=== PATIENT | female | born 2000 | race Hispanic/Latino ===

== ENCOUNTER 2022-03-19 18:41 | Emergency (ER) | payer SELFPAY ==
--- NOTE | ~2022-03-19 | XR_ITS ---
EXAMINATION: XR chest 2V DATE: 03/19/2022 19:09 INDICATION: Right-sided chest pain TECHNIQUE: PA and lateral views of the chest are obtained. COMPARISON: None available FINDINGS: The lungs are free of acute opacities. There is no pleural effusion or pneumothorax. The ca rdiomediastinal silhouette is normal. The visualized bones and soft tissues are unremarkable. IMPRESSION: 1. No acute cardiopulmonary abnormality. Reviewed, dictated and finalized at location F.
[2022-03-19 18:47] VITALS: BP 124/83; PULSE 92; RESP 14; TEMP 36.8; O2SAT 100
--- NOTE | 2022-03-19 19:02 | ED.GENADULT ---
HPI - General Adult General Chief complaint: Upper Respiratory Infection Stated complaint: ST Time Seen by Provider: 03/19/22 18:53 History of Present Illness HPI narrative: Patient is a 21-year-old female here for evaluation of pain in her upper abdomen and sternum area for the past 3 days. Patient states the pain is intermittent in nature, worse with swallowing, and occasionally moves over to her right shoulder. Denies relief after Tylenol. Denies dysphagia, globus sensation, sore throat, nausea, vomiting, fevers, chills, cough, chest pain, diarrhea, constipation. No sick contacts. Related Data Allergies Allergy/AdvReac Type Severity Reaction Status Date / Time shrimp Allergy Swelling Verified 03/19/22 19:13 of Lip/Tongue/Throat Review of Systems Review of Systems: Gen: Denies fevers or chills Eyes: Denies eye pain or visual change ENT: Denies congestion Respiratory: Denies shortness of breath or cough CV: Denies chest pain or palpitations GI: Reports upper abdominal pain. Denies nausea, emesis or diarrhea denies burning, urgency, frequency or hematuria Musculoskeletal: Denies back pain or muscle pain Neuro: Denies numbness, tingling, weakness or focal weakness Skin: Denies rash Except as documented, all other systems reviewed and negative Exam Narrative: APPEARANCE: No acute distress, nontoxic, resting in bed EYES: EOMI HEENT: Posterior oropharynx is mildly erythematous. No exudates, no tonsillar swelling, no COMPUTATIONAL PHYSICIST or RTA visualzed. Neck: No lymphadenopathy. RESPIRATORY: No respiratory distress Clear to auscultation bilaterally with no rhonchi wheezing or rales. CARDIOVASCULAR: Regular rate and rhythm without murmurs rubs or gallops. ABDOMINAL: Soft, nontender, nondistended, no rebound or guarding MUSCULOSKELETAL: No tenderness to palpation of chest wall. Moves all extremities. No clubbing, cyanosis or edema. NEURO: Awake and alert. Following commands, speech normal, no focal deficits SKIN: Warm, dry. No rashes lesions or abrasions PSYCHIATRIC: Normal affect/mood Course Vital Signs Vital signs: Vital Signs Temperature 98.2 F 03/19/22 18:47 Pulse Rate 92 03/19/22 18:47 Respiratory Rate 14 03/19/22 18:47 Blood Pressure 124/83 03/19/22 18:47 Pulse Oximetry 100 03/19/22 18:47 Oxygen Delivery Room Air 03/19/22 18:47 Temperature 99.2 F 03/19/22 20:48 Pulse Rate 79 03/19/22 20:48 Respiratory Rate 18 03/19/22 20:48 Blood Pressure 119/75 03/19/22 20:48 Pulse Oximetry 100 03/19/22 20:48 Oxygen Delivery Room Air 03/19/22 19:14 Medical Decision Making MDM Narrative Medical decision making narrative: 21-year-old female here for evaluation of odynophagia for the past 3 days. Vital signs are normal, heart lungs are clear to auscultation, posterior oropharynx is mildly erythematous but otherwise clear to inspection with no signs of airway compromise. Suspected strep throat, foreign body, or esophagitis. Will follow strep culture. Very low suspicion for esophageal rupture given lack of vomiting or risk factors and clear chest x ray. Low suspicion for cardiac etiology of pain given location and exacerbation with swallowing. She is PERC negative and wells low risk. Patient's pain not improved much after GI cocktail, but patient is stable for discharge. Will have patient follow up with GI specialist for evaluation of her symptoms; she will likely need upper endoscopy if her symptoms continue. Vital Signs Vital Signs: Vital Signs Temperature 98.2 F 03/19/22 18:47 Pulse Rate 92 03/19/22 18:47 Respiratory Rate 14 03/19/22 18:47 Blood Pressure 124/83 03/19/22 18:47 Pulse Oximetry 100 03/19/22 18:47 Oxygen Delivery Room Air 03/19/22 18:47 Temperature 99.2 F 03/19/22 20:48 Pulse Rate 79 03/19/22 20:48 Respiratory Rate 18 03/19/22 20:48 Blood Pressure 119/75 03/19/22 20:48 Pulse Oximetry 100 03/19/22 20:48 Oxygen Delivery Room
[2022-03-19] MEDS: BELLADONNA ALK/PHENOB ELIX 10 ML, MAG HYDROX/ALUMINUM HYD/SIMETH 30 ML, LIDOCAINE HCL 2... PO (19:25)
--- NOTE | 2022-03-19 19:57 | PC.NURSE ---
Called lab, sending down rapid STREP
[2022-03-19] MEDS: IBUPROFEN 600 MG TABLET PO (20:12)
[2022-03-19 20:48] VITALS: BP 119/75; PULSE 79; RESP 18; TEMP 37.3; O2SAT 100
== END 2022-03-19 20:48 | disposition home or self-care (01) ==
PROVIDERS: Emergency Provider Emergency Medicine
DX: R13.10 Dysphagia, unspecified (principal)
CPT/HCPCS: 71046; 99283; A9270

== ENCOUNTER 2022-12-14 09:21 | Emergency (ER) | payer OTHER, MEDICAID, SELFPAY ==
--- NOTE | ~2022-12-14 | US_ITS ---
Pelvic ultrasound. Clinical History: First trimester , vaginal bleeding Technique: Realtime transabdominal and transvaginal scanning of the pelvis was performed. Color flow Doppler and Doppler spectral analysis were performed. Findings: The uterus is anteverted, and contains an intrauterine gestation. heart rate is 134 b pm. [place]-rump length of 7 mm corresponds to an estimated gestational age of 6 weeks 4 days. Small garcia bchorionic hemorrhage probably present. Posterior fibroid measures 2.9 cm in diameter. The right ovary measures 2.2 x 2.5 x 1.0 cm. No significant right ovarian or adnexal mass is seen. The left ovary measures 3.1 x 3.7 x 1.8 cm. No significant left ovarian or adnexal mass is seen. There is no evidence of free fluid in the cul de sac. Impression: Live intrauterine gestation with estimated gestational age of 6 weeks 4 days. heart rate is 134 bpm. Probable small subchorionic hemorrhage. Reviewed, dictated and finalized at location . Impression: Live intrauterine gestation with estimated gestational age of 6 weeks 4 days. F etal heart rate is 134 bpm. Probable small subchorionic hemorrhage.
[2022-12-14 09:33] VITALS: BP 134/80; PULSE 85; RESP 15; TEMP 36.7; O2SAT 100
[2022-12-14 10:19] LABS: Basophils Absolute Auto 0.1 K/mm3 (0.0-0.1); Basophils Percent Auto 0.7 % (0.2-1.2); Eosinophils Absolute Auto 0.1 K/mm3 (0-0.3); Eosinophils Percent Auto 0.6 % (0-4.4); Hemoglobin 15.3 g/dL (12.0-15.0); Immature Granulocyte Absolute 0.04 K/mm3 (0.00-0.031); Immature Granulocyte Percent A 0.3 % (0-0.5); Lymphocytes Percent Auto 18.8 % (18.3-44.2); Mean Corpuscular Hemoglobin 29.4 pg (26-34); Mean Corpuscular Volume 86.4 fl (80-100); Mean Platelet Volume 10.1 fl (7.4-10.4); Monocytes Absolute Auto 0.6 K/mm3 (0.1-0.6); Monocytes Percent Auto 4.8 % (2.6-8.5); Neutrophils Absolute Auto 9.1 K/mm3 (1.3-6.7); Neutrophils Percent Auto 74.8 % (45.5-73.1); Platelet Count Result 362 k/mm3 (150-375); Red Blood Count 5.21 M/mm3 (4.2-5.4); Red Cell Distribution Width 12.8 % (11.5-14.5); White Blood Count 12.2 K/mm3 (4.5-10.0)
--- NOTE | 2022-12-14 13:07 | ED.PREGNANCY ---
HPI - General Chief complaint: Vaginal Bleeding Stated complaint: pos preg test, bleeding and cramping Time Seen by Provider: 12/14/22 11:17 Source: patient Mode of arrival: ambulatory Limitations: no limitations History of Present Illness HPI Narrative: This is a 22-year-old , that presents to the emergency department for vaginal bleeding. Reports a recent positive test. Reports she believes her last menstrual period started on October 21 of this year. Reports this morning she was having some vaginal bleeding associated with cramping. It has slowed since onset. She has not seen her OB yet this . She does have an appointment scheduled for next week. Denies fever or dysuria. Related Data Allergies Allergy/AdvReac Type Severity Reaction Status Date / Time shrimp Allergy Swelling Verified 03/19/22 19:13 of Lip/Tongue/Throat Review of Systems Review of Systems: CONSTITUTIONAL: Denies fever GASTROINTESTINAL: Reports pelvic cramping. Denies vomiting GENITOURINARY: Denies dysuria All systems reviewed & are unremarkable except as noted in HPI and below PMFSH Past Medical History Medical History (Updated 12/14/22 @ 13:14 by Briana Vail PA-C) No active medical problems Social History Social History (Updated 12/14/22 @ 13:10 by Briana Vail PA-C) Smoking status: Never smoker Exam Narrative: GENERAL: Well-appearing, well-nourished, and in no acute distress. HEAD: Normocephalic, atraumatic. EYES: EOMI. CHEST: Clear to auscultation. No respiratory distress. No wheezes rales or rhonchi HEART: Regular rate and rhythm. No murmur heard. Normal peripheral pulses. ABDOMEN: Soft, nontender, nondistended, normal active bowel sounds. EXTREMITIES: Normal range of motion. No edema. SKIN: Warm, dry, no rash. NEURO: No focal deficits. Alert and oriented x3. PSYCH: Normal mood and affect PELVIC: Normal external genitalia. Small amount of pink blood in the vaginal vault, cervix closed Course Course Emergency Course: Patient was updated on work-up and agrees with plan of care Vital Signs Vital signs: Vital Signs Temperature 98.0 F 12/14/22 09:33 Pulse Rate 85 12/14/22 09:33 Respiratory Rate 15 12/14/22 09:33 Blood Pressure 134/80 12/14/22 09:33 Pulse Oximetry 100 12/14/22 09:33 Oxygen Delivery Room Air 12/14/22 09:33 Temperature 98.0 F 12/14/22 09:33 Pulse Rate 85 12/14/22 09:33 Respiratory Rate 15 12/14/22 09:33 Blood Pressure 134/80 12/14/22 09:33 Pulse Oximetry 100 12/14/22 09:33 Oxygen Delivery Room Air 12/14/22 09:33 MDM - OB/Uterine Contractions MDM Narrative Medical decision making narrative: Patient presents emergency department for vaginal bleeding after a recent positive test. Her vitals are stable. Hemoglobin is 15.3. Quantitative beta-hCG 93,276. A very small amount of bleeding was noted on exam. Patient is O+. Obstetrics ultrasound shows a live already uterine gestation with estimated age of 6 weeks and 4 days. heart rate is 134. Also a small subchorionic hemorrhage. Patient was updated on work-up. She does have follow-up next week with her OB. Patient is stable and felt appropriate for further outpatient evaluation. She was given warnings to return to the ER Differential Diagnosis Differential diagnosis: Likely other (Subchorionic hematoma, miscarriage, threatened miscarriage) Lab Data Attestation: I reviewed the patient's lab results. 12/14/22 10:11 Labs: Lab Results 12/14/22 12/14/22 12/14/22 Range/Units 10:11 10:11 10:11 WBC 12.2 H (4.5-10.0) K/mm3 RBC 5.21 (4.2-5.4) M/mm3 Hgb 15.3 H (12.0-15.0) g/dL Hct 45.0 (37.0-47.0) % MCV 86.4 (80-100) fl MCH 29.4 (26-34) pg MCHC 34.0 (32-36) g/dl RDW 12.8 (11.5-14.5) % Plt Count 362 (150-375) k/mm3 MPV 10.1 (7.4-10.4) fl Immature Gran % (Auto) 0.3 (0-0.5) % [place]
== END 2022-12-14 13:28 | disposition home or self-care (01) ==
PROVIDERS: Emergency Medicine; Emergency Provider Physician Assistant
DX: O46.8X1 Other antepartum hemorrhage, first trimester (principal); Z3A.01 Less than 8 weeks gestation of pregnancy
CPT/HCPCS: 36415; 76801; 76817; 81025; 84702; 85025; 85461; 86850; 86900; 86901; 99284

== ENCOUNTER → 2023-02-08 15:56 | Outpatient (CLI) | payer OTHER, MEDICAID, SELFPAY ==
--- NOTE | ~2023-02-08 | US_ITS ---
EXAMINATION: US OB <= 14 weeks fetus DATE: 02/08/2023 16:19 INDICATION: Establish dating of during first trimester TECHNIQUE: Real-time ultrasound of the pelvis was performed. The interpreting radiologist was not pre sent for the study. COMPARISON: 12/14/2022 FINDINGS: There is a single living fetus in breech presentation. The placenta is posterior and low-lying with caudal margin 1.7 cm from the internal cervical os. heart rate is 146 beats per minute (bpm). T he amniotic fluid volume is subjectively normal. The following biometric data were obtained: BPD: 2.9 cm -> 15 weeks 1 days Head circumference: 10.9 cm -> 15 weeks 2 days Abdominal circumference: 9.2 cm -> 15 weeks 2 days Femur length: 1.6 cm -> 14 weeks 5 days These measurements are concordant. Head circumference to abdominal circumference ratio: 1.19 (normal range 1.05-1.38). Estimated weight: 114 g (+/-) 17 g or 4 oz. (+/-) 1 oz. IMPRESSION: 1. Single living fetus in breech presentation with heart rate of 146 bpm. 2. Gestational age by ultrasound of 15 weeks 1 day(s) +/- 1 week(s) 0 day(s) with ultrasound estimate d date of delivery (BRANDON) of 08/01/2023 which is concordant with BRANDON based upon prior ultrasound perfor med on 12/14/2022. Estimated weight is 72nd percentile by Hadlock criteria when 08/15/2023 is us ed as the BRANDON. Please correlate with clinical information or earlier ultrasounds for most accurate ED D. 3. Estimated weight is th percentile by Hadlock criteria when is used as the estimated date of delivery (BRANDON). Please correlate with clinical information or earlier ultrasounds for most accurate E DD. 4. Low-lying posterior placenta with caudal margin 1.7 cm from the internal cervical os. Recommend re assessment with repeat ultrasound during early third trimester of . Reviewed, dictated and finalized at location A. IMPRESSION: 1. Single living fetus in breech presentation with heart rate of 146 bpm. 2. Gestational age by ultrasound of 15 weeks 1 day(s) +/- 1 week(s) 0 day(s) wi th ultrasound estimated date of delivery (BRANDON) of 08/01/2023 which is concordant with BRANDON based upon prior ultrasound performed on 12/14/2022. Estimated w eight is 72nd percentile by Hadlock criteria when 08/15/2023 is used as the BRANDON . Please correlate with clinical information or earlier ultrasounds for most ac curate BRANDON. 3. Estimated weight is th percentile by Hadlock criteria when is used as the estimated date of delivery (BRANDON). Please correlate with clinical informatio n or earlier ultrasounds for most accurate BRANDON. 4. Low-lying posterior placenta with caudal margin 1.7 cm from the internal cer vical os. Recommend reassessment with repeat ultrasound during early third trim peña of .
== END ==
PROVIDERS: PCP Obstetrics & Gynecology Gynecology; Visit Provider Advanced Practice Midwife
DX: Z36.87 Encounter for antenatal screening for uncertain dates (principal); Z3A.15 15 weeks gestation of pregnancy
CPT/HCPCS: 76801

== ENCOUNTER → 2023-03-13 10:29 | Outpatient (CLI) | payer OTHER, MEDICAID, SELFPAY ==
--- NOTE | ~2023-03-13 | US_ITS ---
US OB follow up 03/13/2023 11:13 Indication: Low lying placenta Procedure: High-resolution Limited obstetrical ultrasound Comparison: 02/08/2023 Findings: There is a single living intrauterine in vertex presentation. heart rate is 158 BPM. Placenta is posterior measuring 7 cm to the cervix. Amniotic fluid is subjectively normal. Cervical length is 2.6 cm. Impression: 1: Single living intrauterine in vertex presentation. 2: Posterior placenta without previa. Reviewed, dictated and finalized at location A. Impression: 1: Single living intrauterine in vertex presentation. 2: Posterior placenta without previa.
== END ==
PROVIDERS: PCP Obstetrics & Gynecology Gynecology; Visit Provider Obstetrics & Gynecology Gynecology
DX: O44.10 Complete placenta previa with hemorrhage, unspecified trimester (principal); Z3A.00 Weeks of gestation of pregnancy not specified
CPT/HCPCS: 76816

== ENCOUNTER 2023-03-24 14:33 | Emergency (ER) | payer OTHER, MEDICAID, SELFPAY ==
--- NOTE | ~2023-03-24 | XR_ITS ---
EXAMINATION: XR chest 1V portable INDICATION: Shortness of breath TECHNIQUE: Portable AP chest at 1528 hours COMPARISON: 03/19/2022 FINDINGS: The lungs are free of acute opacities. No pleural effusion or pneumothorax. The cardiomedia stinal silhouette is normal. IMPRESSION: 1. No acute cardiopulmonary abnormality. Reviewed, dictated and finalized at location []
--- NOTE | ~2023-03-24 | US_ITS ---
EXAMINATION: US venous doppler [facility] DATE: 03/24/2023 16:49 INDICATION: Bilateral lower limb swelling TECHNIQUE: Hodges scale images without and with compression and Doppler images of the bilateral lower e xtremity veins were obtained. COMPARISON: None FINDINGS: The right common femoral vein, profunda femoral vein, femoral vein, popliteal vein, peroneal trunk, p osterior tibial veins, and greater saphenous vein are patent. The left common femoral vein, profunda femoral vein, femoral vein, popliteal vein, peroneal trunk, po sterior tibial veins, and greater saphenous vein are patent. IMPRESSION: 1. Patent bilateral lower extremity veins. No evidence of deep venous thrombosis. Reviewed, dictated and finalized at location [] IMPRESSION: 1. Patent bilateral lower extremity veins. No evidence of deep venous thrombosi s.
--- NOTE | ~2023-03-24 | NM_ITS ---
EXAMINATION: NM pulmonary perfusion DATE: 03/24/2023 18:09 INDICATION: Shortness of breath. TECHNIQUE: 4.1 mCi Tc-99m MAA was administered intravenously for perfusion images. Scintigraphic imag es of the chest were obtained. COMPARISON: X-ray chest, same date. FINDINGS: Perfusion images show no defects. IMPRESSION: 1. Low probability for pulmonary embolism. Reviewed, dictated and finalized at location K.
[2023-03-24 14:45] VITALS: BP 124/66; PULSE 93; RESP 18; TEMP 36.7; O2SAT 100
--- NOTE | 2023-03-24 14:55 | ECG_ITS ---
Measurements Intervals [place] Rate: 82 P: 40 NV: 148 QRS: 45 QRSD: 82 T: 13 QT: 343 QTc: 403 Interpretive Statements SINUS RHYTHM NO PREVIOUS ECG AVAILABLE FOR COMPARISON Electronically Signed On 03-25-2023 11:40:12 CDT by Clive Winchester M.D.
[2023-03-24 15:07] VITALS: BP 109/74; PULSE 96; RESP 20; O2SAT 100
[2023-03-24 15:10] VITALS: PULSE 96
[2023-03-24 15:30] VITALS: BP 112/70; PULSE 95; RESP 18; O2SAT 99
[2023-03-24 15:40] LABS: Basophils Absolute Auto 0.1 K/mm3 (0.0-0.1); Basophils Percent Auto 0.4 % (0.2-1.2); Eosinophils Absolute Auto 0.1 K/mm3 (0-0.3); Eosinophils Percent Auto 1.1 % (0-4.4); Hematocrit 37.8 % (37.0-47.0); Hemoglobin 12.7 g/dL (12.0-15.0); Immature Granulocyte Absolute 0.13 K/mm3 (0.00-0.031); Immature Granulocyte Percent A 1.2 % (0-0.5); Lymphocytes Absolute Auto 1.91 K/mm3 (0.9-3.2); Lymphocytes Percent Auto 16.9 % (18.3-44.2); Mean Corpuscular HGB Conc 33.6 g/dl (32-36); Mean Corpuscular Hemoglobin 28.3 pg (26-34); Mean Corpuscular Volume 84.2 fl (80-100); Mean Platelet Volume 10.3 fl (7.4-10.4); Monocytes Absolute Auto 0.8 K/mm3 (0.1-0.6); Monocytes Percent Auto 7.2 % (2.6-8.5); Neutrophils Absolute Auto 8.3 K/mm3 (1.3-6.7); Neutrophils Percent Auto 73.2 % (45.5-73.1); Platelet Count Result 315 k/mm3 (150-375); Red Blood Count 4.49 M/mm3 (4.2-5.4); Red Cell Distribution Width 12.9 % (11.5-14.5); White Blood Count 11.3 K/mm3 (4.5-10.0)
[2023-03-24 15:50] LABS: Alanine Aminotransferase 33 U/L (6-35); Albumin Level 3.7 g/dL (3.5-5.1); Alkaline Phosphatase 78 U/L (38-126); Anion Gap 8 mmol/L (8-16); Aspartate Amino Transferase 23 U/L (14-36); Bilirubin,Total 0.3 mg/dL (0.2-1.3); Blood Urea Nitrogen 7 mg/dL (7-17); Calcium 8.8 mg/dL (8.4-10.2); Carbon Dioxide 23 mmol/L (22-30); Chloride 104 mmol/L (98-107); Estimated Glomerular Filt Rate > 60; Glucose 77 mg/dL (65-110); Potassium 3.4 mmol/L (3.4-5.0); Sodium 135 mmol/L (137-145)
[2023-03-24 15:51] LABS: Partial Thromboplastin Time 26.8 SECONDS (22.3-36.8)
[2023-03-24 15:52] LABS: INR 0.9; Prothrombin Time 12.9 Seconds (11.1-14.7)
[2023-03-24 15:53] LABS: D Dimer 0.89 ug/mL (<0.48)
[2023-03-24 16:02] LABS: NT Pro B Type Natriuretic Pept 54 pg/mL (19.9-100); Troponin I < 0.012 ng/mL (0.000-0.034)
[2023-03-24 16:12] VITALS: BP 107/68; PULSE 88; RESP 16; O2SAT 99
--- NOTE | 2023-03-24 16:33 | ED.GENADULT ---
HPI - General Adult General Chief complaint: Unspecified Stated complaint: I feel like I'm breathing abnormally Time Seen by Provider: 03/24/23 15:06 Source: patient and RN notes reviewed Mode of arrival: ambulatory Limitations: no limitations History of Present Illness HPI narrative: This is a 22 year old female GA 21 weeks who presents for evaluation of shortness of breath. Patient states she has had constant mid sternal chest pain for 2 weeks. She also reports palpitations and she describes her palpitations as episodes of heart racing. She reports shortness of breath that is worse with palpitations. She feels as though she is unable to breath right. Her OB is Dr. Pabon. Related Data Home Medications Medication Instructions Recorded Confirmed No Home Medications 03/24/23 03/24/23 Allergies Allergy/AdvReac Type Severity Reaction Status Date / Time shrimp Allergy Swelling Verified 03/24/23 15:15 of Lip/Tongue/Throat Review of Systems Constitutional: Constitutional: Denies weakness Cardiovascular: Cardiovascular: Denies syncope, Reports rapid heart rate, Denies irregular heart rhythm, Denies leg edema and Reports dyspnea Respiratory: Respiratory: Denies chest congestion, Denies hemoptysis, Denies excessive phlegm production and Denies dyspnea Gastrointestinal: Gastrointestinal: Denies abdominal pain, Denies hematochezia, Denies diarrhea and Denies vomiting Genitourinary: Genitourinary: Denies hematuria and Denies dysuria Musculoskeletal: Musculoskeletal: Denies joint swelling, Denies loss of height and Denies muscle weakness Neurologic: Denies syncope, Denies focal weakness and Denies weakness PMFSH Past Medical History Medical History No active medical problems Social History Social History Smoking status: Never smoker Exam Narrative: GENERAL: Well-appearing, well-nourished, and in no acute distress. HEAD: Normocephalic, atraumatic EYES: PERRLA and EOMI, conjunctiva clear without discharge THROAT:Mucous membranes moist, Oropharynx normal without erythema, exudate, peritonsillar swelling or fluctuance NECK: Supple, without lymphadenopathy or mass RESPIRATORY: No respiratory distress, Airway patent, Respirations non-labored, Clear to auscultation without rales, rhonchi or wheeze HEART: Regular rate and rhythm. No murmur heard. Normal peripheral pulses. ABDOMEN: Soft, nontender gravid, normal active bowel sounds. No masses. No rebound or guarding, No organomegaly. EXTREMITIES: No edema, normal strength with full range of motion. SKIN: Warm, dry, normal color without rash NEURO: Alert and oriented x3. CN 2-12 grossly intact. No focal deficits. PSYCH: Normal mood and affect. Course Vital Signs Vital signs: Vital Signs Temperature 98.1 F 03/24/23 14:45 Pulse Rate 93 03/24/23 14:45 Respiratory Rate 18 03/24/23 14:45 Blood Pressure 124/66 03/24/23 14:45 Pulse Oximetry 100 03/24/23 14:45 Oxygen Delivery Room Air 03/24/23 14:45 Temperature 98.1 F 03/24/23 14:45 Pulse Rate 92 03/24/23 19:06 Respiratory Rate 15 03/24/23 19:06 Blood Pressure 109/74 03/24/23 19:06 Pulse Oximetry 100 03/24/23 19:06 Oxygen Delivery Room Air 03/24/23 14:45 Medical Decision Making MDM Narrative Medical decision making narrative: labs, venous doppler, chest xray, VQ scan to rule out PE/DVT due increased risk with . EKG evaluation unremarkable. EKG no arrhythmia. Patient can be discharge with outpatient evaluation. Differential Diagnosis Differential Diagnosis: VA, GERD, dyspnea from , DVT, PE, cardiomyopathy, electrolyte abnormality, arrhythmia Vital Signs Vital Signs: Vital Signs Temperature 98.1 F 03/24/23 14:45 Pulse Rate 93 03/24/23 14:45 Respiratory Rate 18 03/24/23 14:45 Blood Pressu
[2023-03-24 19:06] VITALS: BP 109/74; PULSE 92; RESP 15; O2SAT 100
== END 2023-03-24 19:08 | disposition home or self-care (01) ==
PROVIDERS: Emergency Provider General Practice
DX: O26.892 Other specified pregnancy related conditions, second trimester (principal); R06.02 Shortness of breath; Z3A.21 21 weeks gestation of pregnancy
CPT/HCPCS: 36415; 71045; 78580; 80053; 83735; 83880; 84443; 84484; 85025; 85380; 85610; 85730; 93005; 93970; 99284; A9540

== ENCOUNTER → 2023-03-27 10:11 | Outpatient (CLI) | payer OTHER, MEDICAID, SELFPAY ==
--- NOTE | ~2023-03-27 | US_ITS ---
EXAMINATION: US OB /maternal detail DATE: 03/27/2023 10:45 INDICATION: anatomy scan TECHNIQUE: Multiple obstetric sonographic images performed. FINDINGS: There is a single living fetus in breech presentation. The placenta is posterior and not low-lying w ith caudal margin 7 cm from the internal cervical os. Amniotic fluid volume is subjectively normal. heart rate of 139 beats per minute. The following anatomy was identified as normal: Ventricles, choroid plexus, falx and cava septum pellucidum Cerebellum and cisterna magna Nuchal fold Upper lip Spine appears normal in the coronal and transaxial planes, sagittal images were not obtained. Diaphragm Stomach Kidneys Bladder 3 vessel cord and cord insertion Bilateral upper and lower extremities including hands and feet Heart views are inadequate for diagnostic evaluation. The following biometric data were obtained: BPD: 4.6 cm -> 20 weeks 0 days Head circumference: 18.3 cm -> 20 weeks 5 days Abdominal circumference: 16.3 cm -> 21 weeks 3 days Femur length: 3.5 cm -> 21 weeks 1 days These measurements are concordant. Head circumference to abdominal circumference ratio: 1.12 (normal range 1.06-1.25). Estimated weight: 403 g (+/-) 60 g. or 14 oz. (+/-) 2 oz. IMPRESSION: 1. Single living fetus with breech presentation with heart rate of 139 bpm. 2. Biometric data concordant within 3 days of the previously estimated gestational age by ultrasound of 21 weeks 2 day(s) with ultrasound estimated date of delivery (BRANDON) of 08/05/2023 ultrasound perform ed on 12/14/2022. Estimated weight is 37th percentile by Hadlock criteria when 08/05/2023 is used as the BRANDON. Please correlate with clinical information or earlier ultrasounds for most accurate BRANDON. 3. Nondiagnostic heart views. Otherwise normal anatomic survey. Reviewed, dictated and finalized at location D. IMPRESSION: 1. Single living fetus with breech presentation with heart rate of 139 b pm. 2. Biometric data concordant within 3 days of the previously estimated gestatio nal age by ultrasound of 21 weeks 2 day(s) with ultrasound estimated date of de livery (BRANDON) of 08/05/2023 ultrasound performed on 12/14/2022. Estimated we ight is 37th percentile by Hadlock criteria when 08/05/2023 is used as the BRANDON. Please correlate with clinical information or earlier ultrasounds for most accu rate BRANDON. 3. Nondiagnostic heart views. Otherwise normal anatomic survey.
== END ==
PROVIDERS: PCP Advanced Practice Midwife; Visit Provider Advanced Practice Midwife
DX: Z36.9 Encounter for antenatal screening, unspecified (principal); Z3A.21 21 weeks gestation of pregnancy
CPT/HCPCS: 76805

== ENCOUNTER → 2023-04-24 07:19 | Outpatient (CLI) | payer OTHER, MEDICAID, SELFPAY ==
--- NOTE | ~2023-04-24 | US_ITS ---
EXAMINATION: US OB follow up DATE: 04/24/2023 07:52 INDICATION: Incomplete anatomic survey. Second trimester. TECHNIQUE: Real-time ultrasound of the pelvis was performed. COMPARISON: Ultrasound 03/27/2023 FINDINGS: There is a single living fetus in vertex presentation. The placenta is posterior. heart rate i s 148 beats per minute (bpm). The amniotic fluid volume is subjectively normal. The heart is normal. IMPRESSION: 1. Single living fetus in vertex presentation. 2. Normal heart. Reviewed, dictated and finalized at location A.
== END ==
PROVIDERS: PCP Obstetrics & Gynecology Gynecology; Visit Provider Obstetrics & Gynecology Gynecology
DX: Z36.2 Encounter for other antenatal screening follow-up (principal)
CPT/HCPCS: 76816

== ENCOUNTER → 2023-06-12 11:15 | Outpatient (CLI) | payer OTHER, MEDICAID, SELFPAY ==
--- NOTE | ~2023-06-12 | US_ITS ---
EXAMINATION: US OB follow up DATE: 06/12/2023 11:47 INDICATION: Size greater than dates during third trimester TECHNIQUE: Real-time ultrasound of the pelvis was performed. The interpreting radiologist was not pre sent for the study. COMPARISON: 04/24/2023 FINDINGS: There is a single living fetus in vertex presentation. The placenta is posterior. car diac activity and movement are noted. heart rate is 153 beats per minute (bpm). The amnio tic fluid index is 18.5 cm which is normal (normal range: 8.6 cm to 24.2 cm). The following biometric data were obtained: Biparietal diameter (BPD): 8.0 cm; head circumference (HC): 29.1 cm; abdominal circumference (AC): 29 .0 cm; femur length (FL): 6.0 cm. These measurements are concordant. Estimated weight is 1961 g +/- 294 g, which correlates with the 42nd percentile when 08/05/2023 is used as estimated date of delivery. As single measurements, these parameters are each equal to the following estimated gestational ages w ith ranges of +/- 2 standard deviations: BPD: 32 weeks 1 days ( 29 weeks 1 days - 35 weeks 2 days). HC: 32 weeks 0 days ( 29 weeks 1 days - 35 weeks 0 days). AC: 33 weeks 0 days ( 30 weeks 0 days - 36 weeks 0 days). FL: 31 weeks 3 days ( 28 weeks 3 days - 34 weeks 3 days). estimated gestational age based solely on measurements from this exam is 32 weeks 1 days +/- 2 weeks 2 days. IMPRESSION: 1. Single living fetus in vertex presentation. 2. Normal amniotic fluid index. 3. Estimated weight is 1961 g +/- 294 g, which correlates with the 42nd percentile when 08/05/20 23 is used as estimated date of delivery. Reviewed, dictated and finalized at location B. IMPRESSION: 1. Single living fetus in vertex presentation. 2. Normal amniotic fluid index. 3. Estimated weight is 1961 g +/- 294 g, which correlates with the 42nd p ercentile when 08/05/2023 is used as estimated date of delivery.
== END ==
PROVIDERS: PCP Nurse Practitioner; Visit Provider Nurse Practitioner
DX: O36.63X0 Maternal care for excessive fetal growth, third trimester, not applicable or unspecified (principal)
CPT/HCPCS: 76816

== ENCOUNTER 2023-07-10 07:28 | Outpatient (CLI) | payer OTHER, MEDICAID, SELFPAY ==
--- NOTE | ~2023-07-10 | US_ITS ---
EXAMINATION: US OB follow up DATE: 07/10/2023 07:58 INDICATION: Size greater than dates. Third trimester. TECHNIQUE: Real-time ultrasound of the pelvis was performed. COMPARISON: Ultrasound 06/12/2023, 12/14/2022 FINDINGS: There is a single living fetus in vertex presentation. The placenta is posterior. heart rate i s 144 beats per minute (bpm). The amniotic fluid index is 13.2 cm, which is normal. The following biometric data were obtained: Biparietal diameter (BPD): 8.8 cm; head circumference (HC): 31.9 cm; abdominal circumference (AC): 32 .1 cm; femur length (FL): 7.0 cm. These measurements are concordant. Estimated weight is 2803 g +/- 420 g, which correlates with the 42nd percentile when 08/05/23 is used as estimated date of delivery. As single measurements, these parameters are each equal to the following estimated gestational ages: BPD: 35 weeks 4 days. HC: 35 weeks 6 days. AC: 36 weeks 0 days. FL: 36 weeks 0 days. estimated gestational age based solely on measurements from this exam is 35 weeks 6 days +/- 2 weeks 4 days. IMPRESSION: 1. Single living fetus in vertex presentation. 2. Estimated weight is 2803 g +/- 420 g, which correlates with the 42nd percentile when 3 is used as estimated date of delivery. This date was set by ultrasound on 12/14/2022. Reviewed, dictated and finalized at location A. IMPRESSION: 1. Single living fetus in vertex presentation. 2. Estimated weight is 2803 g +/- 420 g, which correlates with the 42nd percentile when 08/05/23 is used as estimated date of delivery. This date was se t by ultrasound on 12/14/2022.
== END 2023-07-10 07:29 ==
PROVIDERS: PCP Obstetrics & Gynecology Gynecology; Visit Provider Obstetrics & Gynecology Gynecology
DX: O36.63X0 Maternal care for excessive fetal growth, third trimester, not applicable or unspecified (principal); Z3A.35 35 weeks gestation of pregnancy
CPT/HCPCS: 76816

== ENCOUNTER 2023-07-27 02:25 | Inpatient (IN) | payer OTHER, MEDICAID, SELFPAY ==
[2023-07-27] VITALS (171 sets, daily range): BP systolic 86–211; BP diastolic 12–147; PULSE 25–177; TEMP 36.6–37.7; O2SAT 80–100; BMI 36.6
[2023-07-27 03:44] LABS: Basophils Absolute Auto 0.1 K/mm3 (0.0-0.1); Basophils Percent Auto 0.5 % (0.2-1.2); Eosinophils Absolute Auto 0.1 K/mm3 (0-0.3); Eosinophils Percent Auto 0.9 % (0-4.4); Hematocrit 38.3 % (37.0-47.0); Hemoglobin 11.8 g/dL (12.0-15.0); Immature Granulocyte Absolute 0.23 K/mm3 (0.00-0.031); Immature Granulocyte Percent A 2.4 % (0-0.5); Lymphocytes Absolute Auto 2.02 K/mm3 (0.9-3.2); Mean Corpuscular HGB Conc 30.8 g/dl (32-36); Mean Corpuscular Hemoglobin 23.6 pg (26-34); Mean Corpuscular Volume 76.4 fl (80-100); Mean Platelet Volume 10.8 fl (7.4-10.4); Monocytes Absolute Auto 0.7 K/mm3 (0.1-0.6); Monocytes Percent Auto 7.5 % (2.6-8.5); Neutrophils Absolute Auto 6.5 K/mm3 (1.3-6.7); Neutrophils Percent Auto 67.7 % (45.5-73.1); Platelet Count Result 254 k/mm3 (150-375); Red Blood Count 5.01 M/mm3 (4.2-5.4); Red Cell Distribution Width 20.7 % (11.5-14.5); White Blood Count 9.6 K/mm3 (4.5-10.0)
[2023-07-27 04:36] LABS: HIV 1/2 Ab P24 Ag Result Negative (Negative)
[2023-07-27] MEDS: LACTATED RINGERS 1,000 ML 125 ML IV CONT ×3 (07:38→18:39)
[2023-07-27] MEDS: OXYTOCIN 30 UNITS/NS 500 ML 30 UNITS/500 ML BAG 6 UNITS IV CONT (07:38)
[2023-07-27] MEDS: fentaNYL CITRATE INJ (*CRX) 100 MCG/2 ML VIAL IV PUSH ×2 (12:58→15:16)
--- NOTE | 2023-07-27 14:16 | WPDANESEPP ---
Anes - Eval Pre Procedure Procedure: labor epidural Date/Time: 07/27/23 14:16 Surgeon: moises Preop Diagnosis: pain during labor Pre Op Diagnosis: Leaking Patient Data Age: 22 Gender: F Height: 1.57 m Weight: 91 kg Last Vital Signs Temp 36.6 C 07/27/23 10:30 Pulse 101 H 07/27/23 14:01 BP 121/85 07/27/23 14:01 Pulse Ox 99 07/27/23 14:11 O2 Del Method Room Air 07/27/23 03:40 Allergies Allergy/AdvReac Type Severity Reaction Status Date / Time shrimp Allergy Swelling Verified 07/14/23 14:39 of Lip/Tongue/Throat Home Medications Medication Instructions Recorded Confirmed Type cholecalciferol (vitamin D3) 125 125 mcg PO DAILY 07/14/23 07/14/23 History mcg (5,000 unit) tablet (Vitamin D3) ferrous sulfate 325 mg (65 mg 325 mg PO BID 07/14/23 07/14/23 History iron) tablet prenat.vits,david,yeh-oukb-zahly 1 tablet PO DAILY 07/14/23 07/27/23 History Laboratory Tests 07/27/23 03:34 WBC 9.6 K/mm3 (4.5-10.0) RBC 5.01 M/mm3 (4.2-5.4) Hgb 11.8 L g/dL (12.0-15.0) Hct 38.3 % (37.0-47.0) MCV 76.4 L fl (80-100) MCH 23.6 L pg (26-34) MCHC 30.8 L g/dl (32-36) RDW 20.7 H % (11.5-14.5) Plt Count 254 k/mm3 (150-375) MPV 10.8 H fl (7.4-10.4) Immature Gran % (Auto) 2.4 H % (0-0.5) Neut % (Auto) 67.7 % (45.5-73.1) Lymph % (Auto) 21.0 % (18.3-44.2) [place] % (Auto) 7.5 % (2.6-8.5) Eos % (Auto) 0.9 % (0-4.4) Baso % (Auto) 0.5 % (0.2-1.2) Lymph # (Auto) 2.02 K/mm3 (0.9-3.2) [place] # (Auto) 0.7 H K/mm3 (0.1-0.6) Eos # (Auto) 0.1 K/mm3 (0-0.3) Baso # (Auto) 0.1 K/mm3 (0.0-0.1) Abs Immat Gran (auto) 0.23 H K/mm3 (0.00-0.031) Absolute Neuts (auto) 6.5 K/mm3 (1.3-6.7) Absolute Nucleated RBC 0.0 K/mm3 (0.0-0.012) Nucleated RBC % 0.0 % (0.0-0.2) RPR Pending HIV 1&2 Ab/P24 Ag 4thGn Negative (Negative) Blood Type O Positive Antibody Screen Negative Patient hx anesthesia problems: none Family hx anesthesia problems: none Results Review: All pre-operative results and documents have been reviewed as part of the pre-operative evaluation. [facility] Past Medical History Medical History (Updated 07/27/23 @ 14:17 by Angela Scott CRNA) IUP (intrauterine ), incidental No active medical problems Obesity (BMI 35.0-39.9 without comorbidity) Family History Family History (Updated 07/14/23 @ 14:44 by Angella Mancia RN) Other Patient denies significant medical history Social History Social History Smoking status: Never smoker Second hand tobacco smoke exposure: Yes Substance use: never Lack of Transportation: No Lack of Food: Never True Current Housing: I Have Housing Concerned About Future Housing: No Difficulty Paying Gas/Electric Bills: No Difficulty Paying for Meds: No Currently Unemployed: No Education: High School Diploma/GED Difficulty w/ Childcare or Family Care: No Spiritual care concerns: No Exam Day of Procedure 07/27/23 14:16
[2023-07-27 14:26] LABS: Rapid Plasma Reagin Non-Reactive (NonReactive)
--- NOTE | 2023-07-27 17:18 | PM.OBPNLAB ---
Pain Control Date/time seen: 07/27/23 0750 Pain control: tolerating well Comments: CNM informed of pt's admission this am as MD contact lens blocker overnight. CNM to bedside. dPt feeling occasional uterine contractions, very mild/minimal. Continues leaking clear amniotic fluid. Pelvic Exam Comments: exam deferred at this time Contractions Contraction pattern: Irregular Contraction intensity: Mild Status status: Category l Assessment and Plan Assessment: induction ongoing Plan: continuous present management Comments: Discussed plan of care with pt and her family member. Plan to increase pitocin infusion as needed to achieve adequate contraction pattern. If no change with next SVE recommend IUPC. Discussed IUPC with pt and she is agreeable. No evidence of infection. Anticipate vaginal . Dr. Pabon updated.
--- NOTE | 2023-07-27 17:21 | PM.OBPNLAB ---
Pain Control Date/time seen: 07/27/23 1230 Pain control: tolerating well Comments: CNM called L&D. Contractions Contraction pattern: Irregular Contraction intensity: Mild Status status: Category l Assessment and Plan Comments: Called L&D for update. Spoke with Minerva RN. Pt 4.5 cm on last exam. FHT tracing reassuring. CNM requested IUPC placement per prior plan of care and discussion. RN to place IUPC. Plan to increase pitocin as needed to achieve adequate contraction pattern. Anticipate vaginal . Dr. Pabon updated.
--- NOTE | 2023-07-27 17:23 | PM.OBPNLAB ---
Pain Control Date/time seen: 07/27/23 1630 Pain control: tolerating well Contractions Contraction pattern: Irregular Contraction intensity: Mild Status status: Category l Assessment and Plan Comments: CNM called L&D for update. Last SVE per RN at 1615, pt was 6.5 cm. FHTs reassuring. No evidence of infection. Dr. Pabon updated on pt progress as MD cardiopulmonary technologist this evening.
--- NOTE | 2023-07-27 17:26 | WPDOBADMIT ---
Obstetrics - Admit Note Admission Note: record reviewed. No pertinent additions to the history and/or any subsequent changes in the physical findings that are not consistent with the expected course of the were found. Additions to the history and/or subsequent changes in the physical findings follow. Spontaneous rupture of membranes, not in active labor on admission.
[2023-07-27] MEDS: ONDANSETRON INJ 4 MG/2 ML VIAL IV PUSH (17:42)
--- NOTE | 2023-07-27 18:18 | WPDANESEPPF ---
Anes - Initial Pre Proc Eval Procedure: Labor epidural Date/Time: 07/27/23 18:18 Surgeon: Carole Pabon MD Pre Op Diagnosis: labor pain Pre Op Diagnosis: Leaking Patient Data Age: 22 Gender: F Height: 1.57 m Weight: 91 kg Last Vital Signs Temp 37.2 C 07/27/23 16:30 Pulse 104 H 07/27/23 18:00 BP 138/92 H 07/27/23 18:00 Pulse Ox 97 07/27/23 18:08 O2 Del Method Room Air 07/27/23 03:40 Allergies Allergy/AdvReac Type Severity Reaction Status Date / Time shrimp Allergy Swelling Verified 07/14/23 14:39 of Lip/Tongue/Throat Home Medications Medication Instructions Recorded Confirmed Type cholecalciferol (vitamin D3) 125 125 mcg PO DAILY 07/14/23 07/14/23 History mcg (5,000 unit) tablet (Vitamin D3) ferrous sulfate 325 mg (65 mg 325 mg PO BID 07/14/23 07/14/23 History iron) tablet prenat.vits,david,hio-fppf-oihcy 1 tablet PO DAILY 07/14/23 07/27/23 History Laboratory Tests 07/27/23 03:34 WBC 9.6 K/mm3 (4.5-10.0) RBC 5.01 M/mm3 (4.2-5.4) Hgb 11.8 L g/dL (12.0-15.0) Hct 38.3 % (37.0-47.0) MCV 76.4 L fl (80-100) MCH 23.6 L pg (26-34) MCHC 30.8 L g/dl (32-36) RDW 20.7 H % (11.5-14.5) Plt Count 254 k/mm3 (150-375) MPV 10.8 H fl (7.4-10.4) Immature Gran % (Auto) 2.4 H % (0-0.5) Neut % (Auto) 67.7 % (45.5-73.1) Lymph % (Auto) 21.0 % (18.3-44.2) [place] % (Auto) 7.5 % (2.6-8.5) Eos % (Auto) 0.9 % (0-4.4) Baso % (Auto) 0.5 % (0.2-1.2) Lymph # (Auto) 2.02 K/mm3 (0.9-3.2) [place] # (Auto) 0.7 H K/mm3 (0.1-0.6) Eos # (Auto) 0.1 K/mm3 (0-0.3) Baso # (Auto) 0.1 K/mm3 (0.0-0.1) Abs Immat Gran (auto) 0.23 H K/mm3 (0.00-0.031) Absolute Neuts (auto) 6.5 K/mm3 (1.3-6.7) Absolute Nucleated RBC 0.0 K/mm3 (0.0-0.012) Nucleated RBC % 0.0 % (0.0-0.2) RPR Non-reactive (NonReactive) HIV 1&2 Ab/P24 Ag 4thGn Negative (Negative) Blood Type O Positive Antibody Screen Negative Patient hx anesthesia problems: none Family hx anesthesia problems: none Results Review: All pre-operative results and documents have been reviewed as part of the pre-operative evaluation. [facility] Past Medical History Medical History IUP (intrauterine ), incidental No active medical problems Obesity (BMI 35.0-39.9 without comorbidity) Family History Family History Other Patient denies significant medical history Social History Social History Smoking status: Never smoker Second hand tobacco smoke exposure: Yes Substance use: never Lack of Transportation: No Lack of Food: Never True Current Housing: I Have Housing Concerned About Future Housing: No Difficulty Paying Gas/Electric Bills: No Difficulty Paying for Meds: No Currently Unemployed: No Education: High School Diploma/GED Difficulty w/ Childcare or Family Care: No Spiritual care concerns: No Anes - Eval Final PreProcedure Day of Procedure 07/27/23 18:18 Patient weight: obese Heart: regular rate and rhythm Neurological: alert and oriented ASA classification: II Anesthetic plan: proceed Anesthesia type and monitoring: regional epidural and standard monitoring Results Review: All pre-operative results and documents have been reviewed as part of the pre-operative evaluation. Informed Consent: The patient's anesthetic plan and its attendant risks and benefits were discussed with the patient/family/POA. Questions were solicited and answers provided to the satisfaction of the patient/family/POA.
--- NOTE | 2023-07-27 19:04 | WPDANESEPN ---
Anes - Epidural Procedure Note Date/Time: 07/27/23 19:04 Consent: I have discussed with the patient/family/POA, the placement of an epidural catheter and the use of epidural narcotic/local anesthetic for labor analgesia and/or postoperative pain management, including associated potential risks, benefits, complications and side effects. I have discussed alternative methods of labor analgesia and/or postoperative pain management. The patient/family/POA, understand(s) and wish(es) to proceed with epidural narcotic/local anesthetic for labor analgesia and/or postoperative pain management. Time-Out: A pre-procedural Time-Out was completed immediately before starting the procedure and confirmed: Patient Identification, Site, Procedure, Patient Position and the Availability of Requisite Equipment. Clinical Indications: Labor pain Epidural Insertion Note Patient position: sitting Skin prep: chlorhexidine and sterile drape Needle: 18g Tuohy-Schliff Catheter: 20g Unstyleted Technique: Loss of resistance. Level of insertion: L4/5 Catheter skin ector (cm): 12 Length in epidural space (cm): 6 Skin anesthesia: lidocaine 1% Test dose: 1.5% Lidocaine with [id number] Epi, negative for subarachnoid Inj and negative for intravascular Inj Time of test dose: 18:30 Observations: tolerated well Complications: none
[2023-07-27] MEDS: AMPICILLIN 2 GM/NS 100 ML 2 GM/100 ML BAG IVPB (19:38)
--- NOTE | 2023-07-27 22:38 | PM.OBPRVD ---
OB - Delivery Note Procedure Delivery date: 07/27/23 Procedure: Delivery augmentation: Pitocin Delivery monitor: External FHT and Internal Uterine Route of delivery: Laceration Description: Periurethral (Right) and Perineal - 2nd Degree Delivery repair: vicryl (3-0) Specimen: No Quantitative Blood Loss (ml): 150 Anesthesia type: Epidural Disposition: Floor Baby Date of : 07/27/23 Weeks of gestation at delivery: 39 gender: Female presentation: vertex position: Right Occiput Anterior Placenta delivery description: Spontaneous Cord Vessel Description: 3 Vessels and Delayed Cord Clamping score one minute: 8 score five minutes: 9
--- NOTE | 2023-07-27 22:39 | PM.OBDSVD ---
DS: Admitting Diagnosis Discharge Date 07/29/23 Admitting Diagnosis SROM at term DS: Discharge Diagnosis Discharge Diagnosis (1) (normal spontaneous vaginal delivery): Code(s): O80 - Encounter for full-term uncomplicated delivery Status: Acute OB - DS: Summary OB Procedures : Ultrasound OB Procedures Intrapartum: Spontaneous Vag Delivery OB Procedures: : None Peripartum Data Infant Delivery Method: Natural Vaginal Laceration Description: Periurethral (Right) and Perineal - 2nd Degree complications: none Status at Discharge Functional status at discharge: independent ambulation Overall status at discharge: patient is progressing back to baseline Time Spent with Patient Time attestation: Total time spent providing and/or coordinating discharge services: DS: Data Data Completed and Pending Labs on day of discharge: Labs from last 24 hours 07/27/23 03:34 WBC 9.6 RBC 5.01 Hgb 11.8 L Hct 38.3 MCV 76.4 L MCH 23.6 L MCHC 30.8 L RDW 20.7 H Plt Count 254 MPV 10.8 H Immature Gran % (Auto) 2.4 H Neut % (Auto) 67.7 Lymph % (Auto) 21.0 [place] % (Auto) 7.5 Eos % (Auto) 0.9 Baso % (Auto) 0.5 Lymph # (Auto) 2.02 [place] # (Auto) 0.7 H Eos # (Auto) 0.1 Baso # (Auto) 0.1 Abs Immat Gran (auto) 0.23 H Absolute Neuts (auto) 6.5 Absolute Nucleated RBC 0.0 Nucleated RBC % 0.0 RPR Non-reactive HIV 1&2 Ab/P24 Ag 4thGn Negative Blood Type O Positive Antibody Screen Negative Discharge Plan Discharge Attending physician on discharge: Carole Pabon Discharging Clinician: Carole Pabon Anticipated Discharge Date/Time: 07/29/23 22:40 Patient Disposition: Home, Self-Care Activity: may shower and pelvic rest Diet: regular Patient Instructions: Antibiotic Form Stand Alone Forms: General Discharge Information Follow-up/Referrals: Carole Pabon MD [Physician] - 6 Weeks Discharge Medications: New norethindrone (contraceptive) 0.35 mg tablet 0.35 mg PO DAILY Qty: 84 3RF Continued ferrous sulfate 325 mg (65 mg iron) Tablet 325 mg PO BID #2 Tablet 1 tablet PO DAILY cholecalciferol (vitamin D3) [Vitamin D3] 125 mcg (5,000 unit) Tablet 125 mcg PO DAILY Date of admission: 07/27/23 02:25 Primary Care Provider: PHYSICIAN,INFORMATICS SPEC Admitting Provider: Carole Pabon Attending physician on admission: Carole Pabon Condition: Stable
[2023-07-27] MEDS: OXYTOCIN 30 UNITS/NS 500 ML 30 UNITS/500 ML BAG 125 UNITS IV CONT (22:50)
[2023-07-28] VITALS (12 sets, daily range): BP systolic 106–140; BP diastolic 61–84; PULSE 98–138; RESP 16–20; TEMP 36.3–37.8; O2SAT 98–100
[2023-07-28] MEDS: ACETAMINOPHEN 325 MG TABLET 650 MG PO (01:29)
--- NOTE | 2023-07-28 01:40 | PC.NURSE ---
Patient transferred to post room # 286 via (W/C ). Support person present. Oriented to unit, room, information board, rooming in, admission packet and security measures. Patient verbalizes understanding.
[2023-07-28 06:11] LABS: Hemoglobin 10.2 g/dL (12.0-15.0)
--- NOTE | 2023-07-28 07:27 | PM.OBPNVD ---
OB - PN: Subj Subjective Date/time seen: 07/28/23 07:27 Patient comments: no complaints and pain well controlled baby status: doing well OB - PN: Obj Data Labs 07/28/23 05:57 Labs: Laboratory Results - last 24 hr 07/27/23 07/28/23 03:34 05:57 Hgb 10.2 L Hct 33.0 L RPR Non-reactive OB - PN A/P Plan day: 1 Plan: routine care Time Spent With Patient Time: Total time spent is greater than 50% in coordination of care (as documented) at patient's floor/unit and/or counseling patient: Exam : Bimanual exam- vagina & uterus: other (Uterus firm, nt @U)
[2023-07-28] MEDS: IBUPROFEN 600 MG TABLET PO (08:37)
[2023-07-28] MEDS: MULTIVIT/MIN/PREN/FOL AC/IRON TABLET 1 TAB PO (08:38)
--- NOTE | 2023-07-28 14:09 | PC.NURSE ---
Primary RN reported that mother has bottle fed since . Education given to encourage pumping for milk production and supply. Mother has had company, not pumped or called out for pumping assistance.
[2023-07-29] MEDS: IBUPROFEN 600 MG TABLET PO (07:11)
[2023-07-29] MEDS: DOCUSATE SODIUM 100 MG CAPSULE PO (07:11)
[2023-07-29 07:54] VITALS: BP 112/79; PULSE 87; RESP 20; TEMP 36.6; O2SAT 100
--- NOTE | 2023-07-29 08:50 | P.PNOB_ITS ---
OB - PN: Subj Subjective Date/time seen: 07/29/23 08:50 Patient comments: no complaints and pain well controlled baby status: other (transferred to [facility]) OB - PN: Obj Data Labs 07/28/23 05:57 OB - PN A/P Plan day: 2 Plan: routine care, discharge home, follow up 6 weeks and other (Plans pop until IUD) Time Spent With Patient Time: Total time spent is greater than 50% in coordination of care (as documented) at patient's floor/unit and/or counseling patient: Exam : Bimanual exam- vagina & uterus: other (Uterus firm, nt @U)
== END 2023-07-29 09:33 | disposition home or self-care (01) | DRG 807 ==
LOC: ANHLDR 22:41 → ANHOB2 07-29 08:13 → ANHLDR 07-30 11:27 → ANHOB2 07-30 11:27
PROVIDERS: Admitting Provider Obstetrics & Gynecology Gynecology; Visit Provider Obstetrics & Gynecology Gynecology
DX: O42.02 Full-term premature rupture of membranes, onset of labor within 24 hours of rupture (principal); Z37.0 Single live birth; Z3A.38 38 weeks gestation of pregnancy; O70.1 Second degree perineal laceration during delivery
CPT/HCPCS: 36415; 84112; 85014; 85018; 85025; 86592; 86703; 86850; 86900; 86901; A9270; G0432; J0290; J2405; J2590; J2795; J3010; J7120

== ENCOUNTER 2023-11-10 21:06 | Emergency (ER) | payer OTHER, SELFPAY ==
--- NOTE | ~2023-11-10 | XR_ITS ---
EXAMINATION: XR chest 2V DATE: 11/10/2023 22:23 INDICATION: Shortness of breath and chest pain with inspiration TECHNIQUE: PA and lateral views of the chest were obtained. COMPARISON: 03/24/2023 FINDINGS: The lungs are clear with no focal airspace opacities, pulmonary edema, pleural effusion or pneumothor ax. The cardiomediastinal silhouette is normal. Chronic mild anterior wedging at T11 and T12. IMPRESSION: 1. No acute cardiopulmonary disease. Reviewed, dictated and finalized at location A. UNTS PAYABLE TECHNICIAN
[2023-11-10 21:17] VITALS: BP 130/76; PULSE 92; RESP 15; TEMP 36.6; O2SAT 100
--- NOTE | 2023-11-10 21:38 | ECG_ITS ---
Measurements Intervals Arnett Rate: 78 P: 47 MN: 166 QRS: 53 QRSD: 97 T: 30 QT: 379 QTc: 434 Interpretive Statements SINUS RHYTHM LOW QRS VOLTAGE IN PRECORDIAL LEADS [QRS DEFLECTION < 1.0 mV IN CHEST LEADS] COMPARED TO ECG 03/24/2023 14:59:38 NO SIGNIFICANT CHANGES Electronically Signed On 11-11-2023 12:38:28 SUPERINTENDENT MAINTENANCE by Clive Winchester M.D.
--- NOTE | 2023-11-10 23:41 | ED.GENADULT ---
HPI - General Adult General Chief complaint: Shortness of Breath/Dyspnea <João Heck PA-C - Last Filed: 11/11/23 01:46> Stated complaint: shortness of breath <VERÓNICA Renee Last Filed: 11/11/23 01:46> Time Seen by Provider: 11/10/23 23:31 <VERÓNICA Renee Last Filed: 11/11/23 01:46> Source: patient <VERÓNICA Renee Last Filed: 11/11/23 01:46> Mode of arrival: ambulatory <VERÓNICA Renee Last Filed: 11/11/23 01:46> Limitations: no limitations <VERÓNICA Renee Last Filed: 11/11/23 01:46> History of Present Illness HPI narrative: This is a 23-year-old female who presents to the ED with chief complaint of chest pain and shortness of breath beginning earlier this afternoon. Patient reports pain with deep breathing as well as pain with exertion. Reports that seems to be in the upper chest. Denies any radiation of pain. Denies syncope, nausea, vomiting, lightheadedness, sweats. Denies fevers, chills, cough, abdominal pain, numbness, weakness. Denies recent immobilization, blood clot history, recent illness, recent surgery. <VERÓNICA Renee Last Filed: 11/11/23 01:46> Related Data Home medications: Home Medications Medication Instructions Recorded Confirmed cholecalciferol (vitamin D3) 125 125 mcg PO DAILY 07/14/23 07/14/23 mcg (5,000 unit) tablet (Vitamin D3) ferrous sulfate 325 mg (65 mg 325 mg PO BID 07/14/23 07/14/23 iron) tablet prenat.vits,david,bwl-yyuy-pjigc 1 tablet PO DAILY 07/14/23 07/27/23 <VERÓNICA Renee Last Filed: 11/11/23 01:46> Allergies/adverse reactions: Allergies Allergy/AdvReac Type Severity Reaction Status Date / Time shrimp Allergy Swelling Verified 11/10/23 21:20 of Lip/Tongue/Throat <VERÓNICA Renee Last Filed: 11/11/23 01:46> Review of Systems Review of Systems: All systems as dictated in HPI <João Heck PA-C - Last Filed: 11/11/23 01:46> PMFSH Past Medical History Medical History: Medical History IUP (intrauterine ), incidental No active medical problems Obesity (BMI 35.0-39.9 without comorbidity) <João Heck PA-C - Last Filed: 11/11/23 01:46> Family History Family History: Family History Other Patient denies significant medical history <João Heck PA-C - Last Filed: 11/11/23 01:46> Social History Social History: Social History Smoking status: Never smoker Second hand tobacco smoke exposure: Yes Substance use: never Lack of Transportation: No Lack of Food: Never True Current Housing: I Have Housing Concerned About Future Housing: No Difficulty Paying Gas/Electric Bills: No Difficulty Paying for Meds: No Currently Unemployed: No Education: High School Diploma/GED Difficulty w/ Childcare or Family Care: No Spiritual care concerns: No <João Heck PA-C - Last Filed: 11/11/23 01:46> Exam Narrative: GENERAL: Well-appearing, well-nourished, and in no acute distress. HEAD: Normocephalic, atraumatic. EYES: PERRLA and EOMI. ENT: Nares clear, no rhinorrhea or epistaxis. Mucous membranes moist. Oropharynx without tonsillar hypertrophy exudate or other lesions. NECK: Supple. No adenopathy or masses. CHEST: No respiratory distress. Questionable friction rub in the left upper lung field on auscultation. No rhonchi or rales. 100% on room air. HEART: Regular rate and rhythm. No murmur heard. Normal peripheral pulses. ABDOMEN: Soft, nontender, nondistended, normal active bowel sounds. MSK: Normal range of motion. No edema. SKIN: Warm, dry, no rash. NEURO: Alert and oriented x3. No focal deficits. PSYCH: Normal mood and affect. <João Heck PA-C - Last Filed: 11/11/23 01:46> Course LOG SCALER/PA Physician S
[2023-11-10 23:57] LABS: Basophils Absolute Auto 0.1 K/mm3 (0.0-0.1); Basophils Percent Auto 0.6 % (0.2-1.2); Eosinophils Absolute Auto 0.1 K/mm3 (0-0.3); Eosinophils Percent Auto 1.3 % (0-4.4); Hematocrit 38.1 % (37.0-47.0); Hemoglobin 12.2 g/dL (12.0-15.0); Immature Granulocyte Absolute 0.04 K/mm3 (0.00-0.031); Immature Granulocyte Percent A 0.4 % (0-0.5); Lymphocytes Absolute Auto 2.24 K/mm3 (0.9-3.2); Lymphocytes Percent Auto 20.8 % (18.3-44.2); Mean Corpuscular Hemoglobin 25.6 pg (26-34); Mean Platelet Volume 10.1 fl (7.4-10.4); Monocytes Absolute Auto 0.6 K/mm3 (0.1-0.6); Monocytes Percent Auto 5.6 % (2.6-8.5); Neutrophils Absolute Auto 7.7 K/mm3 (1.3-6.7); Neutrophils Percent Auto 71.3 % (45.5-73.1); Platelet Count Result 351 k/mm3 (150-375); Red Blood Count 4.76 M/mm3 (4.2-5.4); Red Cell Distribution Width 14.6 % (11.5-14.5); White Blood Count 10.8 K/mm3 (4.5-10.0)
[2023-11-11 00:07] LABS: Alanine Aminotransferase 34 U/L (6-35); Albumin Level 3.8 g/dL (3.5-5.1); Alkaline Phosphatase 110 U/L (38-126); Anion Gap 7 mmol/L (8-16); Aspartate Amino Transferase 29 U/L (14-36); Bilirubin,Total 0.5 mg/dL (0.2-1.3); Blood Urea Nitrogen 6 mg/dL (7-17); Calcium 9.5 mg/dL (8.4-10.2); Carbon Dioxide 27 mmol/L (22-30); Chloride 103 mmol/L (98-107); Estimated CRCL calculation 149 ml/min; Estimated Glomerular Filt Rate > 60; Glucose 92 mg/dL (65-110); Potassium 3.8 mmol/L (3.4-5.0); Sodium 137 mmol/L (137-145)
[2023-11-11 00:18] LABS: Troponin I < 0.012 ng/mL (0.000-0.034)
[2023-11-11] MEDS: ACETAMINOPHEN 500 MG TABLET 1000 MG PO (00:18)
[2023-11-11 00:19] LABS: D Dimer 0.39 ug/mL (<0.48)
[2023-11-11 00:35] LABS: Appearance Urine Clear (Clear); Bacteria Urine 1+ /hpf; Bilirubin Urine Negative (Negative); Blood Urine Negative (Negative); Color Urine Yellow (Yellow); Glucose Urine UA 1+ mg/dL (Negative); Ketones Urine Negative (Negative); Leukocyte Esterase Ur 1+ LEU/UL (Negative); Need Manual Microscopic Reviewed; Nitrate Urine Negative (Negative); Non Pathogenic Casts 0-2; Protein Urine Negative (Negative); RBC Urine 0-2 /hpf (0-2); Specific Grav Ur 1.016 (1.001-1.035); Squamous Epithelial Cell Urine None seen /hpf (Few); WBC Urine 0-5 /hpf; pH Urine 6.5 (5.0-9.0)
[2023-11-11 00:38] LABS: Add Urine Microscopic? YES
[2023-11-11 01:12] VITALS: BP 132/78; PULSE 87; RESP 16; O2SAT 100
== END 2023-11-11 01:12 | disposition home or self-care (01) ==
PROVIDERS: Emergency Provider Physician Assistant
DX: R09.1 Pleurisy (principal); E66.9 Obesity, unspecified; Z68.33 Body mass index [BMI] 33.0-33.9, adult
CPT/HCPCS: 36415; 71046; 80053; 81001; 81025; 84484; 85025; 85380; 93005; 99284; A9270